=== PATIENT | female | born 1940 | race Hispanic/Latino ===

== ENCOUNTER 2017-05-30 20:07 | Emergency (ER) | payer MEDICAID ==
[2017-05-30 23:14] LABS: Basophils % (Auto) 0.5 % (0.0-1.8); Eosinophils % (Auto) 0.7 % (0.0-4.3); Hematocrit 40.5 % (30.3-42.9); Hemoglobin 13.7 gm/dl (10.1-14.3); Mean Corpuscular HGB Conc 34 % (30-34); Mean Corpuscular Hemoglobin 30 pg (28-32); Mean Corpuscular Volume 88 fl (79-97); Platelet Count 293 K/mm3 (140-440); Red Blood Count 4.62 M/mm3 (3.65-5.03); Red Cell Distribution Width 12.7 % (13.2-15.2); White Blood Count 9.4 K/mm3 (4.5-11.0)
[2017-05-30 23:24] LABS: Anion Gap 19 mmol/L; BUN/Creatinine Ratio 22; Blood Urea Nitrogen 13 mg/dL (7-17); Carbon Dioxide 24 mmol/L (22-30); Glucose 128 mg/dL (65-100); Potassium 4.7 mmol/L (3.6-5.0); Sodium 125 mmol/L (137-145)
[2017-05-30 23:25] LABS: INR 0.98 (0.87-1.13); Partial Thromboplastin Time 29.7 Sec. (24.2-36.6)
[2017-05-31 04:53] LABS: Bacteria,Urine 3+ /HPF (Negative); Bilirubin,Urine NEG (Negative); Blood,Urine SM (Negative); Ketones,Urine TR mg/dL (Negative); Leukocyte Esterase,Urine SM (Negative); Nitrite,Urine NEG (Negative); Protein,Urine <15 mg/dL mg/dL (Negative); Urobilinogen,Urine < 2.0 mg/dL (<2.0)
[2017-05-31] MEDS ORDERED: FIORICET PO ONE (06:06)
[2017-05-31] MEDS ORDERED: FIORICET ONE (06:07)
[2017-05-31] MEDS ORDERED: NACL 0.9% 1000 ML 1,000 ML IV ONE (10:31)
[2017-05-31] MEDS ORDERED: REGLAN IV ONE (10:31)
[2017-05-31] MEDS ORDERED: MORPHINE IV ONE (10:42)
[2017-05-31] MEDS ORDERED: TORADOL IV ONE (10:42)
--- NOTE | 2017-05-31 11:16 | Cat Scan Report ---
CT HEAD WITHOUT CONTRAST: 05/31/17 CLINICAL: Severe headache. TECHNIQUE: 2.5-mm noncontrast scans. COMPARISON:None FINDINGS: The ventricles are normal size. However, global sulcal enlargement is disproportionate with age. Bilateral periventricular white matter hypodensities with a few prominent bilateral focal white matter hypodensities. No mass or mass effect. No hemorrhage, edema or extra-axial collection. The sinuses are clear. Normal orbits and soft tissues. The calvarium and skull base are intact. IMPRESSION: Global cortical atrophy and extensive chronic white matter microangiopathy. Nonspecific focal white matter hypodensities of the frontal lobes. Consider MRI with contrast.
--- NOTE | 2017-05-31 11:30 | Emergency Department Report ---
HPI - General Chief Complaint: Headache Time Seen by Provider: 05/31/17 10:14 - HPI HPI: 76-year-old white female brought to ED with headache, nausea, weakness for the past 2 days worse today. Patient denies any fever, neck pain, focal weakness. Patient is from [place] does not speak much [place] but daughter at bedside translating for her. Patient also complained of heartburn after eating some red salmon. Patient has history of ischemic brain disease, has been without her Plavix for the past few months due to no primary care physician. Patient also had some mild chest pain on presentation. By the time I saw her she stated that her chest pains symptoms were gone. ED Past Medical Hx - Past Medical History Previous Medical History?: Yes Hx Hypertension: Yes Hx CVA: No Hx Heart Attack/AMI: No Hx Pulmonary Embolism: No Hx Renal Disease: No Hx Arthritis: Yes Hx Headaches / Migraines: Yes (x 4 days) Hx Seizures: No Additional medical history: Gallstones and Gallstone surgery, Hyperthyroid - Social History Smoking Status: Never Smoker - Medications Home Medications: Home Medications Medication Instructions Recorded Confirmed Last Taken Type Clopidogrel Bisulfate [Clopidogrel] 75 mg PO QDAY #30 tablet 05/31/17 Unknown Rx Donepezil [Aricept] 10 mg PO QDAY #30 tablet 05/31/17 Unknown Rx Folic Acid [Folvite] 1 mg PO QDAY #30 tablet 05/31/17 Unknown Rx Omeprazole 40 mg PO QDAY #30 capsule. 05/31/17 Unknown Rx Rosuvastatin Calcium [Crestor] 40 mg PO QHS #30 tablet 05/31/17 Unknown Rx ED Review of Systems ROS: Stated complaint: WEAKNESS/HBP Other details as noted in HPI Constitutional: no symptoms reported Cardiovascular: as per HPI, chest pain Endocrine: no symptoms reported Gastrointestinal: abdominal pain, nausea, vomiting Physical Exam - Physical Exam Vital Signs: Vital Signs 05/30/17 05/30/17 05/31/17 20:38 22:13 05:37 Temperature 98.4 F 98.4 F 97.5 F L Pulse Rate 81 89 75 Respiratory 18 20 18 Rate Blood Pressure 175/80 164/88 157/84 O2 Sat by Pulse 99 100 98 Oximetry 05/31/17 06:07 Temperature Pulse Rate Respiratory 20 Rate Blood Pressure O2 Sat by Pulse Oximetry Physical Exam: Physical Exam: Physical Exam: - General Limitations: No Limitations General appearance: alert, in no apparent distress. - Head Head exam: Present: atraumatic, normocephalic - Eye Eye exam: Present: normal appearance - ENT ENT exam: Present: mucous membranes moist - Neck Neck exam: Present: normal inspection - Respiratory Respiratory exam: Present: normal lung sounds bilaterally. Absent: respiratory distress - Cardiovascular Cardiovascular Exam: Present: normal rhythm, normal rate. Absent: systolic murmur, diastolic murmur, rubs, gallop - GI/Abdominal GI/Abdominal exam: Present: soft, normal bowel sounds - Extremities Exam Extremities exam: Present: normal inspection - Back Exam Back exam: Present: normal inspection - Neurological Exam Neurological exam: Present: alert, oriented X3 - Psychiatric Psychiatric exam: normal affect and mood - Skin Skin exam: Present: warm, dry, intact, normal color. Absent: rash ED Course Vital Signs 05/30/17 05/30/17 05/31/17 20:38 22:13 05:37 Temperature 98.4 F 98.4 F 97.5 F L Pulse Rate 81 89 75 Respiratory 18 20 18 Rate Blood Pressure 175/80 164/88 157/84 O2 Sat by Pulse 99 100 98 Oximetry 05/31/17 06:07 Temperature Pulse Rate Respiratory 20 Rate Blood Pressure O2 Sat by Pulse Oximetry ED Medical Decision Making - Lab Data Result diagrams: 05/30/17 22:38 05/30/17 22:38 Critical care attestation.: If time is entered above; I have spent that time in minutes in the direct care of this critically ill patient, excluding procedure time. ED Disposition Clinical Impression: Weakness, Disease of brain Gastritis Qualifiers: Gastritis type: other gastritis Chronicity: chronic Gastritis bleeding: without bleeding Qualified Code(s): K29.50 - Unspecified chronic gastritis without bleeding Disposition: DC-01 TO HOME OR SELFCARE Is pt being admited?: No Does the pt Need Aspirin: No Condition: Stable Prescriptions: Rosuvastatin Calcium [Crestor] 40 mg PO QHS #30 tablet Clopidogrel Bisulfate [Clopidogrel] 75 mg PO QDAY #30 tablet Donepezil [Aricept] 10 mg PO QDAY #30 tablet Folic Acid [Folvite] 1 mg PO QDAY #30 tablet Omeprazole 40 mg PO QDAY #30 capsule. Referrals: PRIMARY CARE, [Primary Care Provider] - 3-5 Days
[2017-05-31] MEDS ORDERED: ALUM-MAG HYDROX-SIMETH 200-200-20MG/5ML PO ONE (11:55)
[2017-05-31] MEDS ORDERED: PEPCID IV ONE (11:55)
[2017-05-31] MEDS ORDERED: NACL ONE (12:15)
--- NOTE | 2017-05-31 12:51 | Cat Scan Report ---
CT ABDOMEN AND PELVIS WITH CONTRAST: 05/30/17 20:07:00 CLINICAL: Abdominal pain. COMPARISON: None. TECHNIQUE: Volumetric acquisition and 1.25 millimeter scan reconstructions after the uneventful intravenous injection of 100 cc Omnipaque 300. Consent was obtained prior to the administration of contrast. Oral contrast was not given. FINDINGS: Abdomen: Clear lung bases. Normal liver and bile ducts. No gallbladder identified. Normal stomach, duodenum, pancreas and spleen. Normal size kidneys with normal nondilated collecting systems and ureters. Normal adrenal glands. Aortic tortuosity and calcification. The inferior vena cava is normal. Normal small bowel.Normal ascending, transverse and descending colon. The appendix is well imaged and normal. No mass, lymphadenopathy or ascites.No pneumoperitoneum. Pelvis: Normal urinary bladder.Normal uterus and ovaries. No adnexal mass or free fluid. Normal rectum and sigmoid colon. Bone windows demonstrate no bone lesion. IMPRESSION:Normal abdomen status post cholecystectomy. Normal pelvis.
[2017-05-31 13:12] LABS: Amylase 51 units/L (27-131); Lipase 24 units/L (13-60)
[2017-05-31 13:23] VITALS: BP 138/67
== END 2017-05-31 13:33 | disposition home or self-care (01) ==
LOC: ED 20:07
DX: G93.9 Disorder of brain, unspecified (principal); K29.70 Gastritis, unspecified, without bleeding; I10 Essential (primary) hypertension; M19.90 Unspecified osteoarthritis, unspecified site
CPT/HCPCS: 36415; 70450; 74177; 80048; 81001; 82150; 83690; 84484; 85025; 85610; 85730; 93005; 93010; 96361; 96374; 96375; 99285; J1885; J2270; J2765; J7030; Q9967

== ENCOUNTER 2017-12-01 23:24 | Emergency (ER) | payer MEDICAID | END 2017-12-01 23:30 | disposition left against medical advice (07) | LOC: ED 23:24 | DX: R58 Hemorrhage, not elsewhere classified (principal); Z53.21 Procedure and treatment not carried out due to patient leaving prior to being seen by health care provider ==